=== PATIENT | female | born 1990 | race Caucasian/White ===

== ENCOUNTER → 2020-09-26 | Outpatient (CLI) | payer OTHER ==
--- NOTE | 2020-09-26 17:37 | CARD ---
MR#: [id number] Date of Study: 09/26/2020 Ordering Physician: VALERIE MULLINS, Referring Physician: VALERIE MULLINS, Tech: Mia Hernandez APPROVED REPORT EXAM: Two-dimensional and M-mode echocardiogram with Doppler and color Doppler. Other Information Quality : AverageHR: 83bpm INDICATION Dyspnea Edema RISK FACTORS Smoking 2D DIMENSIONS RVDd2.2 (2.9-3.5cm)Left Atrium(2D)2.7 (1.6-4.0cm) IVSd0.9 (0.7-1.1cm)Aortic Root(2D)2.9 (2.0-3.7cm) LVDd4.4 (3.9-5.9cm)LVOT Diameter2.0 (1.8-2.4cm) PWd0.8 (0.7-1.1cm)LVDs3.0 (2.5-4.0cm) FS (%) 32.7 %SV54.9 ml Aortic Valve AoV Peak Tim.97.5cm/sAoV VTI24.6cm AO Peak GR.3.8mmHgLVOT Peak Tim.81.6cm/s LVOT VTI 19.02cmAO Mean GR.3mmHg YUNG (VMAX)2.86lt7WOA (VTI)2.45cm2 Mitral Valve MV E Luajtkjp75.1cm/sMV DECEL FOHI841su MV A [place]qh26.7cm/sMV TTG15rx E/A Ratio1.4MVA (PHT)3.91cm2 TDI E/Lateral E'7.4E/Medial E'7.7 Pulmonary Valve PV Peak Rftzadof09.8cm/sPV Peak Grad.2mmHg Tricuspid Valve TR P. Kvtslacr422bg/sRAP [id number] TR Peak Gr.17vcVmLYCG11eyOp Pulmonary Vein S1 Zdzyocwl41.2cm/sD2 Bzjhjabi01.1cm/s PVa [id number] LEFT VENTRICLE The left ventricle is normal size. There is normal left ventricular wall thickness. The left ventricu lar systolic function is normal and the ejection fraction is within normal range. The Ejection Fracti on is 50-55%. There is normal LV segmental wall motion. The left ventricular diastolic function and f illing is normal for age. RIGHT VENTRICLE The right ventricle is normal size. There is normal right ventricular wall thickness. The right ventr icular systolic function is normal. ATRIA The left atrium size is normal. The right atrium size is normal. The interatrial septum is intact wit h no evidence for an atrial septal defect or patent foramen ovale as noted on 2-D or Doppler imaging. AORTIC VALVE The aortic valve is normal in structure and function. Doppler and Color Flow revealed no significant aortic regurgitation. There is no significant aortic valvular stenosis. MITRAL VALVE The mitral valve is normal in structure and function. There is no evidence of mitral valve prolapse. There is no mitral valve stenosis. Doppler and Color-flow revealed trace mitral regurgitation. TRICUSPID VALVE The tricuspid valve is normal in structure and function. Doppler and Color Flow revealed trace tricus pid regurgitation with an estimated PAP of 20 mmHg. There is no tricuspid valve stenosis. PULMONIC VALVE The pulmonic valve is not well visualized. Doppler and Color Flow revealed trace pulmonic valvular re gurgitation. GREAT VESSELS The aortic root is normal in size. The IVC is normal in size and collapses >50% with inspiration. PERICARDIAL EFFUSION There is no evidence of significant pericardial effusion. Critical Notification Critical Value: No <Conclusion> The left ventricle is normal size. The left ventricular systolic function is normal and the ejection fraction is within normal range. The Ejection Fraction is 50-55%. There is normal LV segmental wall motion. Doppler and Color Flow revealed no significant aortic regurgitation. There is no significant aortic valvular stenosis. Doppler and Color-flow revealed trace mitral regurgitation. Doppler and Color Flow revealed trace tricuspid regurgitation with an estimated PAP of 20 mmHg. Signed by : Nito Anderson MD Electronically Approved : 09/26/2020 17:36:49
== END ==
LOC: ECHO 13:23
PROVIDERS: ATTEND Specialist
DX: R06.00 Dyspnea, unspecified (principal); R60.0 Localized edema; Z87.891 Personal history of nicotine dependence
CPT/HCPCS: 93306